=== PATIENT | male | born 1985 | race Caucasian/White ===

== ENCOUNTER → 2021-11-06 | Outpatient (CLI) | payer OTHER ==
[~2021-11-06] MED LIST: BUPRENORPHIN-N1 EACH SL; CATAPRES 0.1MG0.1 MG PO; KEFLEX500 MG PO; NEURONTIN600 MG PO; SEROQUEL XR150 MG PO; SULFAMETHOXAZO1 EACH PO; WELLBUTRIN SR150 M1 PO
== END ==
LOC: KOH-I 11:30
DX: S92.311A Displaced fracture of first metatarsal bone, right foot, initial encounter for closed fracture (principal); S92.321A Displaced fracture of second metatarsal bone, right foot, initial encounter for closed fracture; S92.331A Displaced fracture of third metatarsal bone, right foot, initial encounter for closed fracture; Y04.0XXA Assault by unarmed brawl or fight, initial encounter
CPT/HCPCS: 73700